=== PATIENT | female | born 2000 | race Asian ===

== ENCOUNTER 2019-12-31 14:10 | Emergency (ER) | payer OTHER ==
[~2019-12-31] VITALS: Ht 154.9 cm; Wt 47.6 kg
[2019-12-31 14:18] VITALS: Ht 154.9 cm; Wt 47.6 kg
[2019-12-31 18:29] LABS: AMPHETAMINE QUAL UR NONE DETECTED (See below)
[2019-12-31 20:12] LABS: BASOPHIL % 0.3 % (0-2); PLATELET COUNT 311 x10^3mcL (130-400); RED CELL DISTRIBUTION WIDTH 14.1 % (11.5-14.5)
[2019-12-31 20:27] LABS: CALCIUM 9.2 mg/dL (8.5-10.1); CARBON DIOXIDE 21.5 mmol/L (21-32); CHLORIDE SERUM 97 mmol/L (98-107); CREATININE SERUM 0.8 mg/dL (0.6-1.0); GFR1 > 60 mL/min; GLUCOSE SERUM 101 mg/dL (74-106); POTASSIUM SERUM 3.7 mmol/L (3.5-5.1); SODIUM SERUM 134 mmol/L (136-145)
[2019-12-31 20:37] LABS: ALBUMIN 4.2 g/dL (3.4-5.0); ALKALINE PHOSPHATASE 46 U/L (46-116); ALT/SGPT 30 U/L (14-59); AST/SGOT 20 U/L (15-37); BILIRUBIN TOTAL 0.8 mg/dL (0.20-1.00); TOTAL PROTEIN, SERUM 7.9 g/dL (6.4-8.2)
[2020-01-01 02:42] VITALS: BP 93/43
== END 2020-01-01 02:42 ==
LOC: ED 14:10
PROVIDERS: Emergency Medicine
DX: F31.9 Bipolar disorder, unspecified (principal); Z20.828 Contact with and (suspected) exposure to other viral communicable diseases
CPT/HCPCS: G0480; J2060; J3490; U0003-CS